=== PATIENT | female | born 1980 | race African-American/Black ===

== ENCOUNTER 2018-03-25 10:33 | Emergency (ER) | payer OTHER ==
[2018-03-25 10:38] VITALS: BP 119/78; PULSE 76; TEMP 98.3; BMI 27.9
[2018-03-25] MEDS ORDERED: DIPHTH,PERTUSS(ACELL),TET 0.5 ML DISP.SYRIN IM ONE (10:39)
--- NOTE | 2018-03-25 10:40 | PDOC ---
History of Present Illness - General Chief Complaint: Laceration Stated Complaint: RT 2ND FINGER LACERATION Time Seen by Provider: 03/25/18 10:34 - History of Present Illness Initial Comments: 03/25/18 10:40 cut finger will slicing at work. Past History - Past Medical History Allergies/Adverse Reactions: Allergies Allergy/AdvReac Type Severity Reaction Status Date / Time No Known Allergies Allergy Verified 03/25/18 10:34 Home Medications: Ambulatory Orders No Home Medications 0 dose .ROUTE UTDICT 06/21/12 COPD: No CHF: No - Suicide/Smoking/Psychosocial Hx Smoking Status: Yes Smoking History: Current every day smoker Have you smoked in the past 12 months: Yes Number of Cigarettes Smoked Daily: 10 Information on smoking cessation initiated: Yes 'Breaking Loose' booklet given: 03/25/18 Hx Alcohol Use: No Drug/Substance Use Hx: No Substance Use Type: None *Physical Exam - Vital Signs Last Vital Signs Temp Pulse Resp BP Pulse Ox 98.3 F 76 18 119/78 99 03/25/18 10:33 03/25/18 10:33 03/25/18 10:33 03/25/18 10:33 03/25/18 10:33 - Physical Exam Comments: 03/25/18 11:02 R ist digit medial oblique cut removing approx 1cm length of skin. no bone exposure FROM of PIP and DIP *DC/Admit/Observation/Transfer Diagnosis at time of Disposition: Laceration - Discharge Dispostion Disposition: HOME Condition at time of disposition: Stable Decision to Admit order: No - Referrals - Patient Instructions Printed Discharge Instructions: DI for Minor Laceration Additional Instructions: You were seen in the ED for complaints of R finger laceration. In the ED you were evaluated, the wound was dressed and you were treated with a tetanus booster. There does not appear to be an acute need for immediate hospitalization. You are advised to follow up with your primary care physician within 1 week. Return to the ED or your primary care physician in 4 days (03/29/18) for revaluation. You are to refrain from for the next 4-5 days and to use the finger as tolerated. Return to the ED immediately if you experience worsening pain in the finger, excessive swelling, change in color of the finger, numbness or tingling, inability to move the finger joints, fever or discharge from the finger. - Post Discharge Activity Forms/Work/School Notes: Back to Work
== END 2018-03-25 11:40 | disposition home or self-care (01) ==
LOC: FER 10:33
PROC: 3E0234Z Introduction of Serum, Toxoid and Vaccine into Muscle, Percutaneous Approach (ICD-10-PCS; principal; 2018-03-25)
DX: S61.012A Laceration without foreign body of left thumb without damage to nail, initial encounter (principal); F17.210 Nicotine dependence, cigarettes, uncomplicated
CPT/HCPCS: 90715; 99283-25

== ENCOUNTER 2018-03-29 12:36 | Emergency (ER) | payer OTHER ==
[2018-03-29 12:39] VITALS: BP 98/74; PULSE 86; TEMP 98.2; BMI 27.9
--- NOTE | 2018-03-29 13:51 | PDOC ---
Suture Removal/Wound Check HPI - History of Present Illness Chief Complaint: Revisit,Wound Recheck Stated Complaint: WOUND CHECK RT 2ND FINGER Time Seen by Provider: 03/29/18 13:16 History Source: Yes: Patient Exam Limitations: Yes: No Limitations Treated at: [facility] ED Date of Last ED visit: 03/25/18 - Previous ED Treatment Type of procedure performed on last visit: Yes: Other Antibiotics Prescribed: No - Onset of Previous Treatment Comment:: 03/29/18 13:53 pt with a laceration/skin avulsion (cut off skin of index finger with knife) was seen in the ED and referred for wound check in several days pt denies any complaints, it is still sore, no bleeding, discharge, increased pain, warmth, fever/chills on exam wound appears clean, with some epithielization not warm to touch, no redness/eryhtmea, indruation, no discharge apepars to be healing well applied some bascitracin here will have pt apply BID, and clean gently with water/soap return precautiosn were discussed Past History - Past Medical History Allergies/Adverse Reactions: Allergies Allergy/AdvReac Type Severity Reaction Status Date / Time No Known Allergies Allergy Verified 03/29/18 12:37 Home Medications: Ambulatory Orders No Home Medications 0 dose .ROUTE UTDICT 06/21/12 COPD: No CHF: No - Suicide/Smoking/Psychosocial Hx Smoking Status: Yes Smoking History: Never smoked Have you smoked in the past 12 months: Yes Number of Cigarettes Smoked Daily: 10 Information on smoking cessation initiated: Yes 'Breaking Loose' booklet given: 03/29/18 Hx Alcohol Use: No Drug/Substance Use Hx: No Substance Use Type: None *Physical Exam - Vital Signs Last Vital Signs Temp Pulse Resp BP Pulse Ox 98.2 F 86 18 98/74 100 03/29/18 12:36 03/29/18 12:36 03/29/18 12:36 03/29/18 12:36 03/29/18 12:36 *DC/Admit/Observation/Transfer Diagnosis at time of Disposition: Encounter for wound re-check - Discharge Dispostion Disposition: HOME Condition at time of disposition: Improved Decision to Admit order: No - Referrals - Patient Instructions Additional Instructions: Return if ther is increased pain, redness, swelling dischargem, bleeding or other concerns. Keep the area clean/dry, apply bacitracin twice daily for the next week. Print Language: BENGALI - Post Discharge Activity
== END 2018-03-29 13:59 | disposition home or self-care (01) ==
LOC: FER 12:36
DX: Z48.01 Encounter for change or removal of surgical wound dressing (principal)
CPT/HCPCS: 99281-25

== ENCOUNTER 2020-09-26 08:31 | Emergency (ER) | payer OTHER ==
[2020-09-26] MEDS ORDERED: SILVER SULFADIAZINE 1% TOP CREAM 50 GM JAR TP ONE ×2 (08:41→08:58)
[2020-09-26 09:18] VITALS: BP 134/83; PULSE 88; TEMP 99.4; BMI 30.7
== END 2020-09-26 09:34 | disposition home or self-care (01) ==
LOC: FER 08:31
DX: T20.14XA Burn of first degree of nose (septum), initial encounter (principal); T20.16XA Burn of first degree of forehead and cheek, initial encounter
CPT/HCPCS: 99283-25

== ENCOUNTER 2021-02-01 11:06 | Emergency (ER) | payer OTHER ==
[2021-02-01 11:16] VITALS: BP 151/74; PULSE 71; TEMP 99; BMI 31.8
[2021-02-01 15:50] LABS: HIV INTERPRETATION NEGATIVE (NEGATIVE)
== END 2021-02-01 13:52 | disposition home or self-care (01) ==
LOC: FER 11:06
DX: B37.0 Candidal stomatitis (principal); J02.9 Acute pharyngitis, unspecified; Z11.52 Encounter for screening for COVID-19
CPT/HCPCS: 36415; 82962; 87070; 87389; 99283-25; C9803; U0003; U0005

== ENCOUNTER 2021-11-25 11:05 | Emergency (ER) | payer OTHER ==
[2021-11-25 11:18] VITALS: BP 150/99; PULSE 95; TEMP 98.6; BMI 34.9
[2021-11-25] MEDS ORDERED: CEPHALEXIN MONOHYDRATE 500 MG CAPSULE (UD) PO ONE (11:20)
[2021-11-25] MEDS ORDERED: predniSONE 20 MG TABLET (UD) PO ONE (11:20)
[2021-11-25] MEDS ORDERED: CEPHALEXIN MONOHYDRATE 500 MG CAPSULE (UD) ONE (11:30)
[2021-11-25] MEDS ORDERED: predniSONE 20 MG TABLET (UD) ONE (11:30)
== END 2021-11-25 11:37 | disposition home or self-care (01) ==
LOC: FER 11:05
DX: S80.861A Insect bite (nonvenomous), right lower leg, initial encounter (principal); S80.862A Insect bite (nonvenomous), left lower leg, initial encounter; L03.115 Cellulitis of right lower limb; L03.116 Cellulitis of left lower limb; W57.XXXA Bitten or stung by nonvenomous insect and other nonvenomous arthropods, initial encounter
CPT/HCPCS: 99283-25

== ENCOUNTER 2022-06-22 16:09 | Emergency (ER) | payer OTHER ==
[2022-06-22 16:18] VITALS: BP 146/83; PULSE 95; RESP 18; TEMP 98.6; BMI 33.7
[2022-06-22] MEDS ORDERED: predniSONE 20 MG TABLET (UD) PO ONE (16:25)
[2022-06-22] MEDS ORDERED: FAMOTIDINE 10 MG TABLET PO ONE (16:26)
[2022-06-22] MEDS ORDERED: predniSONE 20 MG TABLET (UD) ONE (16:28)
[2022-06-22] MEDS ORDERED: predniSONE 10 MG TABLET (UD) ONE (16:29)
[2022-06-22] MEDS ORDERED: FAMOTIDINE 20 MG TABLET ONE (16:29)
== END 2022-06-22 16:37 | disposition home or self-care (01) ==
LOC: FER 16:09
DX: R21 Rash and other nonspecific skin eruption (principal)
CPT/HCPCS: 99283-25